=== PATIENT | female | born 1945 | race Caucasian/White ===

== ENCOUNTER 2016-03-24 23:01 | Inpatient (IN) | payer MEDICARE, OTHER ==
[~2016-03-24 23:01] MED LIST: CIPR500T4 PO; METR-1 PO
[2016-03-24 23:39] VITALS: BP 155/65; PULSE 91; RESP 24; TEMP 100.5; O2SAT 93
--- NOTE | 2016-03-24 23:54 | PD ---
HPI Chief Complaint: Cold / Flu Symptoms Time Seen by Provider: 23:09 Travel History International Travel<30 days: No Contact w/Intl Traveler<30days: No Traveled to known affect area: No History of Present Illness HPI The patient is a 70 year old female who presents to the [facility] emergency department with a history of cough and congestion that she reports began a month ago. She reports that the cough is mainly dry in character, however at times it is productive of white sputum. Initially it was productive of yellow to green sputum. The patient reports that today she had a fever with a MAXIMUM TEMPERATURE of 100.5. She reports that she's also been short of breath. She reports that over the last 3 days her symptoms have become much worse. She reports that she has been having frequent episodes of posttussive emesis. She reports that she's had at least 50 episodes of emesis yesterday. She reports that she is not able to sleep related to the cough. She reports that her primary care physician is Dr. Ritter. The patient denies any recent neck pain, chest pain, abdominal pain, diarrhea, urinary symptoms, or neurologic symptoms. [facility] Past Medical History Narrative Medical The patient's past medical history is reportedly none. The patient reports that she quit smoking 16 days ago. Medical History: Denies Significant Hx Diminished Hearing: No Tetanus Vaccination: > 5 Years Influenza Vaccination: No ?: Not Menopausal: No : 3 Para: 3 Miscarriage: 0 : 0 Past Surgical History Narrative Surgical The patient reports that she has a past surgical history significant for bilateral tubal ligation, appendectomy. Surgical History: No Previous Surgery Social History Alcohol Use: Yes (Beer 3 times per week) Tobacco Use: No (Quite 16 days ago smoking 1 pack per day) Substance Use: No Allergies-Medications (Allergen,Severity, Reaction): Coded Allergies: Codeine (Verified Allergy, Mild, Rash, 03/24/16) Reported Meds & Prescriptions Reported Meds & Active Scripts Active No Active Prescriptions or Reported Medications Review of Systems Except as stated in HPI: all other systems reviewed are Neg General / Constitutional: Positive: Fever, Chills Eyes: No: Visual changes HENT: No: Headaches Cardiovascular: Positive: Dyspnea on exertion, No: Chest Pain or Discomfort Respiratory: Positive: Cough, Shortness of Breath, Wheezing Gastrointestinal: Positive: Nausea, Vomiting, No: Diarrhea, Abdominal Pain Genitourinary: No: Dysuria Musculoskeletal: No: Pain Skin: No Rash Neurologic: No: Weakness Psychiatric: No: Depression Endocrine: No: Polydipsia Hematologic/Lymphatic: No: Easy Bruising Physical Exam Narrative General: The patient is a well-developed well-nourished female, uncomfortable appearing on arrival with repeated dry cough. Head and Neck exam: Head is normocephalic atraumatic. Eyes: Pupils are equal round and reactive to light. Nose: Midline septum with pink mucous membranes Mouth: Dentition unremarkable. Moist mucus membranes. Posterior oropharynx is not erythematous. No tonsillar hypertrophy. Uvula midline. Airway patent. Neck: No palpable lymphadenopathy. No nuchal rigidity. No thyromegaly. Cardiovascular: Regular rate and rhythm without murmurs, gallops, or rubs. Lungs: Soft expiratory wheezes audible in bilateral lung [place], no rhonchi, no crackles audible. Abdomen: Soft, without tenderness to palpation in all 4 quadrants of the abdomen. No guarding, rebound, or rigidity. Normal bowel sounds are audible. Extremities: No clubbing, cyanosis, or edema. 2+ pulses in all 4 extremities. No calf tenderness on palpation. Back: No spinous process tenderness to palpation. No costovertebral angle tenderness to palpation. Neurologic Exam: Grossly nonfocal. Skin Exam: No rash noted. Intact skin that is warm and dry. Data Data Last Documented VS Vital Signs Date Time Temp Pulse Resp B/P Pulse Ox O2 Delivery O2 Flow Rate FiO2 03/25/16 03:14 95 Nasal Cannula 2.00 03/25/16 02:39 100.2 117 24 109/51 Orders Lactic Acid Sepsis Protocol (03/24/16 23:42) Electrocardiogram (03/24/16 23:42) Complete Blood Count With Diff (03/24/16 23:42) Comprehensive Metabolic Panel (03/24/16 23:42) Creatine Kinase (Cpk) (03/24/16 23:42) Ckmb (Isoenzyme) Profile (03/24/16 23:42) Troponin I (03/24/16 23:42) B-Type Natriuretic Peptide (03/24/16 23:42) Prothrombin Time / Inr (Pt) (03/24/16 23:42) Act Partial Throm Time (Ptt) (03/24/16 23:42) Blood Culture (03/24/16 23:42) Lipase (03/24/16 23:42) Urinalysis - C+S If Indicated (03/24/16 23:42) Magnesium (Mg) (03/24/16 23:42) Influenzae A/B Antigen (03/24/16 23:42) Chest, Single Ap (03/24/16 23:42) Iv Access Insert/Monitor (03/24/16 23:42) Ecg Monitoring (03/24/16 23:42) Oximetry (03/24/16 23:42) CKMB (03/24/16 23:30) CKMB% (03/24/16 23:30) Sodium Chloride 0.9% Flush (Ns Flush) (03/25/16 01:30) Methylprednisolone So Succ Inj (Solumedr (03/25/16 01:30) Albuterol-Ipratropium Neb (Duoneb Neb) (03/25/16 01:30) Levofloxacin 750 Mg Premix Inj (Levaquin (03/25/16 01:30) Sodium Chlor 0.9% 1000 Ml Inj (Ns 1000 M (03/25/16 02:53) Sodium Chloride 0.9% Flush (Ns Flush) (03/25/16 03:00) Sodium Chloride 0.9% Flush (Ns Flush) (03/25/16 09:00) Acetaminophen (Tylenol) (03/25/16 03:00) Ondansetron Inj (Zofran Inj) (03/25/16 03:00) Albuterol-Ipratropium Neb (Duoneb Neb) (03/25/16 04:00) Albuterol-Ipratropium Neb (Duoneb Neb) (03/25/16 03:00) Methylprednisolone So Succ Inj (Solumedr (03/25/16 08:00) Admit To Inpatient (03/25/16 ) Vital Signs (Adult) Q4H (03/25/16 02:53) Activity Oob With Assistance PRN (03/25/16 02:53) ^ Notify Parameters (03/25/16 02:53) Intake + Output Q8H (03/25/16 02:53) ^ Smoking Cessation Counseling (03/25/16 02:53) Diet Heart Healthy (03/25/16 Breakfast) Resp Oxygen Rikki C Titrat 1-4 L (03/25/16 ) Resp Incentive Spirometry (03/25/16 ) Enoxaparin Inj (Lovenox Inj) (03/25/16 06:00) Inpatient Certification (03/25/16 ) Temazepam (Restoril) (03/25/16 03:15) Levofloxacin 750 Mg Premix Inj (Levaquin (03/26/16 02:00) Sputum Culture And Gram Stain (03/25/16 03:15) Admit Order (Ed Use Only) (03/25/16 03:47) Labs Laboratory Tests Test 03/24/16 03/24/16 23:30 23:45 White Blood Count 9.1 TH/MM3 Red Blood Count 4.45 MIL/MM3 Hemoglobin 13.5 GM/DL Hematocrit 39.7 % Mean Corpuscular Volume 89.3 FL Mean Corpuscular Hemoglobin 30.5 PG Mean Corpuscular Hemoglobin 34.1 % Concent Red Cell Distribution Width 14.5 % Platelet Count 181 TH/MM3 Mean Platelet Volume 8.1 FL Neutrophils (%) (Auto) 77.7 % Lymphocytes (%) (Auto) 12.4 % Monocytes (%) (Auto) 9.6 % Eosinophils (%) (Auto) 0.1 % Basophils (%) (Auto) 0.2 % Neutrophils # (Auto) 7.1 TH/MM3 Lymphocytes # (Auto) 1.1 TH/MM3 Monocytes # (Auto) 0.9 TH/MM3 Eosinophils # (Auto) 0.0 TH/MM3 Basophils # (Auto) 0.0 TH/MM3 CBC Comment DIFF FINAL Differential Comment Prothrombin Time 9.7 SEC Prothromb Time International 0.9 RATIO Ratio Activated Partial 25.5 SEC Thromboplast Time Sodium Level 137 MEQ/L Potassium Level 3.5 MEQ/L Chloride Level 100 MEQ/L Carbon Dioxide Level 26.3 MEQ/L Anion Gap 11 MEQ/L Blood Urea Nitrogen 15 MG/DL Creatinine 0.85 MG/DL Estimat Glomerular Filtration 67 ML/MIN Rate Random Glucose 100 MG/DL Calcium Level 8.7 MG/DL Magnesium Level 1.8 MG/DL Total Bilirubin 0.4 MG/DL Aspartate Amino Transf 22 U/L (AST/SGOT) Alanine Aminotransferase 31 U/L (ALT/SGPT) Alkaline Phosphatase 98 U/L Total Creatine Kinase 172 U/L Creatine Kinase MB 1.0 NG/ML Troponin I LESS THAN 0.02 NG/ML B-Type Natriuretic Peptide 18 PG/ML Total Protein 7.1 GM/DL Albumin 3.6 GM/DL Lipase 135 U/L Lactic Acid Level 1.3 mmol/L MDM Medical Decision Making Medical Screen Exam Complete: Yes Emergency Medical Condition: Yes Medical Record Reviewed: Yes Interpretation(s) Last Impressions Chest X-Ray 03/24/16 2032 Signed Impressions: Service Date/Time: Thursday, March 24, 2016 23:53 - CONCLUSION: Minimal left base parenchymal opacity.. Segun Arroyo MD Differential Diagnosis Pneumonia, versus bronchitis, versus COPD, versus reactive airway disease, versus congestive heart failure, versus acute coronary syndrome Narrative Course During the course of the patients emergency department visit, the patients history, examination, and differential diagnosis were reviewed with the patient. The patient had IV access obtained and blood work sent for analysis. The patient was placed on a taker off drying kiln with oximetry and blood pressure monitoring. An EKG was done on arrival. The patient's EKG shows a sinus tachycardia with occasional supraventricular premature contractions, no acute ST segment elevation is noted. T waves are inverted in V1, V2. No ST segment elevation. The patient was provided DuoNeb 2, Solu-Medrol 125 mg IV, Levaquin 750 mg IV was administered 1. The patients laboratory studies were reviewed and remarkable for a CBC that shows a white count of 9.1, hemoglobin 13.5, platelets 181 with 77.7 neutrophils , CMP is unremarkable, initial set of cardiac enzymes are negative, BNP is 18, lipase 135, PT PTT within normal limits Radiology studies were reviewed and remarkable for a chest x-ray that shows a minimal left days parenchymal opacity consistent with pneumonia. The patient has hypoxia on room air, therefore the patient will be admitted to the hospital for continued evaluation and treatment with supplemental oxygen. The patients results were discussed with the patient, including the plan of care. I explained that further testing and/ or monitoring is indicated based on the patients history, examination, and/ or laboratory findings. Therefore, I recommended admission for additional evaluation. The patient expressed understanding and was agreeable with this plan. The patient was admitted to the hospital in stable condition and sent to a bed under the care of the [facility] hospitalist group. Sepsis Criteria SIRS Criteria (2 or more): Heart rate over 90, RR > 20 or PaCO2 < 32 Sepsis Criteria (SIRS+source): Infect source susp/known Criteria Outcome: Meets SIRS criteria, Meets sepsis criteria Physician Communication Physician Communication The patient's case is discussed with Dr. Segun Guerrero the physician junior administrative assistant who did agree to admit the patient for further evaluation and treatment at this time. Diagnosis Primary Impression: Left lower lobe pneumonia Qualified Code: J18.1 - Pneumonia of left lower lobe due to infectious organism Additional Impression: Hypoxemia Admitting Information Admitting Physician Requests: Admit Scripts No Active Prescriptions or Reported Meds Nathalie Raines MD Mar 24, 2016 23:53
[2016-03-25] VITALS (11 sets, daily range): BP systolic 103–125; BP diastolic 51–67; PULSE 78–117; RESP 17–24; TEMP 98.1–100.5; O2SAT 93–96
[2016-03-25 00:04] LABS: AUTOMATED NEUTROPHIL # 7.1 TH/MM3 (1.8-7.7); BASOPHIL % 0.2 % (0.0-2.0); EOSINOPHIL % 0.1 % (0.0-4.0); HEMATOCRIT 39.7 % (35.0-46.0); HEMO FLAGS DIFF FINAL; LYMPH % 12.4 % (9.0-44.0); LYMPHOCYTE # 1.1 TH/MM3 (1.0-4.8); MEAN CELL VOLUME 89.3 FL (80.0-100.0); MEAN CORPUSCULAR HEMOGLOBIN 30.5 PG (27.0-34.0); MEAN CORPUSCULAR HGB CONC 34.1 % (32.0-36.0); MONO % 9.6 % (0.0-8.0); NEUT % 77.7 % (16.0-70.0); PLATELET COUNT 181 TH/MM3 (150-450); RED BLOOD COUNT 4.45 MIL/MM3 (4.00-5.30); RED CELL DISTRIBUTION WIDTH 14.5 % (11.6-17.2); WHITE BLOOD COUNT 9.1 TH/MM3 (4.0-11.0)
--- NOTE | 2016-03-25 00:05 | RADRPT ---
EXAM DATE/TIME: 03/24/2016 23:53 [place] COMPARISON: No previous studies available for comparison. INDICATIONS : Cough for two months. Vomiting for two days. MEDICAL HISTORY : None. SURGICAL HISTORY : None. ENCOUNTER: Initial ACUITY: 2 months PAIN SCORE: 0/10 LOCATION: Bilateral chest FINDINGS: There is minimal parenchymal opacity at the lateral left lung base. Right lung is grossly clear. Card iomediastinal contours are satisfactory. CONCLUSION: Minimal left base parenchymal opacity.. Segun Arroyo MD on March 25, 2016 at 0:03 Board Certified Radiologist. This report was verified electronically.
[2016-03-25 00:23] LABS: APTT (PATIENT) 25.5 SEC (24.3-30.1); INTERNATIONAL NORMALIZED RATIO 0.9 RATIO; PROTHROMBIN TIME - PATIENT 9.7 SEC (9.8-11.6)
[2016-03-25 00:29] LABS: ALKALINE PHOSPHATASE 98 U/L (45-117); ALT (GPT) 31 U/L (10-53); ANION GAP 11 MEQ/L (5-15); AST (GOT) 22 U/L (15-37); BICARBONATE 26.3 MEQ/L (21.0-32.0); BLOOD UREA NITROGEN 15 MG/DL (7-18); CHLORIDE 100 MEQ/L (98-107); CREATINE KINASE 172 U/L (26-192); GLOMERULAR FILTRATION RATE 67 ML/MIN (>89); MAGNESIUM 1.8 MG/DL (1.5-2.5); POTASSIUM 3.5 MEQ/L (3.5-5.1); SODIUM (NA) 137 MEQ/L (136-145); TOTAL BILIRUBIN ADULT 0.4 MG/DL (0.2-1.0)
[2016-03-25] MEDS ORDERED: LEVOFLOXACIN 750 MG PREMIX INJ 150 ML IV ONE (01:30)
[2016-03-25] MEDS ORDERED: SODIUM CHLORIDE 0.9% FLUSH 5 ML FLUSH IVF PRN (01:30)
[2016-03-25] MEDS ORDERED: methylPREDNISolone SOD SUCC 125 MG/2 ML VIAL IVP ONE (01:30)
[2016-03-25] MEDS: RESP: ALBUTEROL 2.5 MG/IPRATROPIUM 0.5 MG NEB (SCH) INH ×5 (01:52→21:00)
[2016-03-25] MEDS ORDERED: ACETAMINOPHEN 325 MG TAB PO PRN (03:00)
[2016-03-25] MEDS ORDERED: ONDANSETRON HCL 4 MG/2 ML VIAL IV PRN (03:00)
[2016-03-25] MEDS ORDERED: RESP: ALBUTEROL 2.5 MG/IPRATROPIUM 0.5 MG NEB (PRN) INH (03:00)
[2016-03-25] MEDS ORDERED: SODIUM CHLORIDE 0.9% FLUSH 5 ML FLUSH IV FLUSH PRN (03:00)
[2016-03-25] MEDS ORDERED: TEMAZEPAM 15 MG CAP PO PRN (03:15)
[2016-03-25] MEDS: SODIUM CHLOR 0.9% 1000 ML INJ 1,000 ML IV SCH ×3 (05:05→23:44)
[2016-03-25] MEDS: ENOXAPARIN SODIUM 40 MG/0.4 ML SYRINGE SQ SCH (05:11)
[2016-03-25 05:30] LABS: BLOOD, URINE TRACE (NEG); COMMENT (UR) CULT NOT INDICATED; CULTURE IF INDICATED CULT NOT INDICATED; GLUCOSE,URINE NEG (NEG); KETONE, URINE TRACE mg/dL (NEG); MUCUS URINE FEW /lpf (OCC); NITRITE,URINE NEG (NEG); SQUAMOUS EPITHELIAL CELL URINE <1 /hpf (0-5); URINE COLOR YELLOW (YELLW/STRAW)
[2016-03-25] MEDS ORDERED: LORazepam 2 MG/ML VIAL IM ONE (05:30)
[2016-03-25] MEDS: methylPREDNISolone SOD SUCC 40 MG/1 ML VIAL IV SCH ×3 (09:41→20:11)
[2016-03-25] MEDS: SODIUM CHLORIDE 0.9% FLUSH 5 ML FLUSH IV FLUSH SCH ×2 (09:41→20:11)
--- NOTE | 2016-03-25 10:35 | EKG ---
Date Performed: 03/25/2016 Time Performed: 00:44:51 PTAGE: 70 years EKG: SINUS TACHYCARDIA WITH OCCASIONAL SUPRAVENTRICULAR PREMATURE COMPLEXES LOW QRS VOLTAGE IN P RECORDIAL LEADS POSSIBLE RIGHT VENTRICULAR CONDUCTION DELAY ABNORMAL RHYTHM ECG NO PREVIOUS TRACING DOCTOR: Tobias Raines Interpretating Date/Time 03/25/2016 10:33:56
--- NOTE | 2016-03-25 10:57 | MH ---
cc: KIKO ALONZO MD DATE OF ADMISSION: 03/25/2016 CHIEF COMPLAINT Cough and shortness of breath. HISTORY OF PRESENT ILLNESS This is a pleasant 70-year-old female who states she has had a cough for about a month. She has been taking [id number] cough medicine and it did not completely take it away. Over the past 2 days she developed increasing mucous production with green to yellow mucus. She has had some chills. She has had nausea and vomiting anytime she tried to eat. She has felt a little short of breath and weak from this. She is not complaining of any specific chest pain. She does have some discomfort only when she is coughing. She has never been sick like this before. She was going to try to get into her family doctor but was unable to so she came to the emergency room. She was found to have a left base pneumonia and is being admitted for further care. MEDICATIONS Medications on admission are none. ALLERGIES CODEINE. PAST MEDICAL HISTORY No significant medical history. PAST SURGICAL HISTORY 1. Appendectomy. 2. Tubal ligation. SOCIAL HISTORY . Tobacco one pack a day for 13 years, quit 2 weeks ago. Alcohol 4-5 beers three times a week. Recreational drug use occasional pot. She is a retired business ortho rn. FAMILY HISTORY Father at 72 with CAD/UT. He also had diabetes. Mother at 80 of pneumonia. Four sisters alive and well. REVIEW OF SYSTEMS The patient states she has not had a mammogram since age 67. She does not take the flu or pneumonia vaccines. She states she has had a colonoscopy in the last 10 years and is reported to be normal. Prior to getting sick over the last two days her weight has been stable. She denies any other specific changes in her overall health on 10-point review of systems. PHYSICAL EXAMINATION VITAL SIGNS: T-max 100.5, heart rate 117 after nebulizer treatment, prior to nebulizer heart rate 91, blood pressure 109/51. O2 sat is 95% on two liters. GENERAL: In general this is a 70-year-old female resting comfortably in bed in no acute distress. HEENT: Mucous membranes are moist. No jaundice. NECK: Supple. HEART: Tachycardic. LUNGS: A few scattered wheezes. ABDOMEN: Bowel sounds are present. No point tenderness, guarding or rebound. She has no suprapubic tenderness. EXTREMITIES: No edema. Homans negative. Distal pulses palpable. NEUROLOGIC: Awake, alert and oriented x4. She is moving all extremities freely. INVESTIGATIONS CBC is normal. CMP is normal. Lipase is normal. GFR is estimated at 67. Magnesium 1.8. Troponin less than 0.02. INR is 0.9. Chest x-ray shows minimal left base parenchymal opacity. IMPRESSION 1. Left basilar pneumonia. 2. Early sepsis on admission. 3. Recent history of tobacco abuse. DISCUSSION The patient is being admitted to Dr. Alonzo's service. The patient meets inpatient criteria because of meeting SIRS/early sepsis criteria as well as having left basilar pneumonia and requiring oxygen. Without hospitalization she would be at high risk for respiratory failure, septic shock, etc. During her hospital stay she will be gently hydrated, nebulizers will be given, oxygen will be given. Continue IV antibiotics. Will attempt a sputum culture. DVT prophylaxis will be provided. Her diet will be advanced. PRN medications for sleep and nausea will be provided. She will be discharged when she is medically stable. Anticipated length of stay is 3 days. Anticipated discharge is home. Dictated by: Dwight Guerrero PA-C MD GIANCARLO Dai/ROB /3:12 AM /10:42 AM Diagnosis: (1) Left lower lobe pneumonia (2) Hypoxemia Plan: pt seen & Examined d/w Segun d/w PT See H&P\ See Orders will f/u Kiko Alonzo MD Mar 25, 2016 13:31 MTDD
--- NOTE | 2016-03-25 13:31 | HHI.PR ---
Objective Objective Results - Vital Signs Date Time Temp Pulse Resp B/P Pulse Ox O2 Delivery O2 Flow Rate FiO2 03/25/16 12:00 98.1 84 18 109/63 95 03/25/16 10:04 95 Nasal Cannula 2.00 03/25/16 10:00 98.3 88 18 111/60 95 03/25/16 09:49 87 18 123/62 96 Nasal Cannula 2 03/25/16 08:00 98.1 86 18 125/67 95 Nasal Cannula 2 03/25/16 05:14 100.1 87 24 121/65 93 Nasal Cannula 03/25/16 03:14 95 Nasal Cannula 2.00 03/25/16 02:39 100.2 117 24 109/51 95 Nasal Cannula 2 03/25/16 00:05 100.5 24 93 Nasal Cannula 2 03/24/16 23:39 100.5 91 24 155/65 93 Nasal Cannula 2 03/24/16 23:39 91 24 93 Nasal Cannula 2 I/O 03/24/16 03/24/16 03/24/16 03/25/16 03/25/16 03/25/16 07:00 15:00 23:00 07:00 15:00 23:00 Intake Total 150 ml Balance 150 ml Intake Oral 150 ml # Voids 1 Result Diagram: 03/24/16 2330 03/24/16 2330 Other Results Laboratory Tests Test 03/24/16 03/24/16 03/25/16 23:30 23:45 05:15 White Blood Count 9.1 Red Blood Count 4.45 Hemoglobin 13.5 Hematocrit 39.7 Mean Corpuscular Volume 89.3 Mean Corpuscular Hemoglobin 30.5 Mean Corpuscular Hemoglobin 34.1 Concent Red Cell Distribution Width 14.5 Platelet Count 181 Mean Platelet Volume 8.1 Neutrophils (%) (Auto) 77.7 Lymphocytes (%) (Auto) 12.4 Monocytes (%) (Auto) 9.6 Eosinophils (%) (Auto) 0.1 Basophils (%) (Auto) 0.2 Neutrophils # (Auto) 7.1 Lymphocytes # (Auto) 1.1 Monocytes # (Auto) 0.9 Eosinophils # (Auto) 0.0 Basophils # (Auto) 0.0 CBC Comment DIFF FINAL Differential Comment Prothrombin Time 9.7 Prothromb Time International 0.9 Ratio Activated Partial 25.5 Thromboplast Time Sodium Level 137 Potassium Level 3.5 Chloride Level 100 Carbon Dioxide Level 26.3 Anion Gap 11 Blood Urea Nitrogen 15 Creatinine 0.85 Estimat Glomerular Filtration 67 Rate Random Glucose 100 Calcium Level 8.7 Magnesium Level 1.8 Total Bilirubin 0.4 Aspartate Amino Transf 22 (AST/SGOT) Alanine Aminotransferase 31 (ALT/SGPT) Alkaline Phosphatase 98 Total Creatine Kinase 172 Creatine Kinase MB 1.0 Troponin I LESS THAN 0.02 B-Type Natriuretic Peptide 18 Total Protein 7.1 Albumin 3.6 Lipase 135 Lactic Acid Level 1.3 Urine Color YELLOW Urine Turbidity CLEAR Urine pH 5.0 Urine Specific [place] 1.018 Urine Protein NEG Urine Glucose (UA) NEG Urine Ketones TRACE Urine Occult Blood TRACE Urine Nitrite NEG Urine Bilirubin NEG Urine Urobilinogen LESS THAN 2.0 Urine Leukocyte Esterase NEG Urine RBC 1 Urine WBC LESS THAN 1 Urine Squamous Epithelial <1 Cells Urine Mucus FEW Microscopic Urinalysis Comment CULT NOT INDICATED Date/Time Procedure Status Source Growth 03/25/16 00:45 Influenza Types A,B Antigen (LAURA) - Final Complete Nasal Aspirate NEGATIVE FOR FLU A AND B ANTIGEN.... 03/24/16 23:45 Aerobic Blood Culture Received Blood Peripheral Pending 03/24/16 23:45 Anaerobic Blood Culture Received Blood Peripheral Pending A/P Diagnosis: (1) Left lower lobe pneumonia (2) Hypoxemia Plan: pt seen & Examined d/w Segun d/w PT See H&P\ See Orders will f/u Problem Qualifiers (1) Left lower lobe pneumonia: Qualified Code: J18.1 - Pneumonia of left lower lobe due to infectious organism Escobar Alonzo MD Mar 25, 2016 13:31
[2016-03-26] VITALS (9 sets, daily range): BP systolic 88–115; BP diastolic 49–98; PULSE 66–89; RESP 16–18; TEMP 96.9–98.6; O2SAT 91–99
[2016-03-26] MEDS: LEVOFLOXACIN 750 MG PREMIX INJ 150 ML IV SCH (02:31)
[2016-03-26] MEDS: methylPREDNISolone SOD SUCC 40 MG/1 ML VIAL IV SCH ×4 (02:32→20:42)
[2016-03-26] MEDS: RESP: ALBUTEROL 2.5 MG/IPRATROPIUM 0.5 MG NEB (SCH) INH ×4 (02:38→20:53)
[2016-03-26] MEDS: ENOXAPARIN SODIUM 40 MG/0.4 ML SYRINGE SQ SCH (06:16)
[2016-03-26] MEDS: SODIUM CHLORIDE 0.9% FLUSH 5 ML FLUSH IV FLUSH SCH ×2 (08:09→20:48)
[2016-03-26] MEDS: SODIUM CHLOR 0.9% 1000 ML INJ 1,000 ML IV SCH ×2 (08:13→20:52)
[2016-03-26] MEDS ORDERED: PNEUMOCOCCAL POLYVALENT INJ 25 MCG/0.5 ML SYR IM ONE (09:00)
[2016-03-26] MEDS ORDERED: INFLUENZA VIRUS VACCINE (QUADRIVALENT) 0.5 ML SYR IM ONE (09:00)
--- NOTE | 2016-03-26 11:14 | HHI.PR ---
Subjective History of Present Illness PT IS FEELING WELL cough is better breathing is ok ready to go home offers no other c/o Vitals/Results Intake & Output 03/25/16 03/25/16 03/26/16 15:00 23:00 07:00 Intake Total 768 ml 978 ml 700 ml Output Total 300 ml Balance 768 ml 678 ml 700 ml Intake Oral 360 ml 340 ml IV Total 408 ml 638 ml 700 ml Output Urine Total 300 ml # Voids 1 # Bowel Movements 0 Vital Signs Vital Signs Date Time Temp Pulse Resp B/P Pulse Ox O2 Delivery O2 Flow Rate FiO2 03/26/16 09:08 98 Nasal Cannula 2.00 03/26/16 08:28 93 Nasal Cannula 2.00 03/26/16 08:00 96.9 83 16 88/49 93 03/26/16 04:00 97.8 89 18 114/56 99 03/26/16 02:40 98 Nasal Cannula 2.00 03/26/16 02:40 98 High Flow Nasal Cannula 2.00 03/26/16 00:00 97.9 66 18 102/50 94 03/25/16 20:07 Nasal Cannula 2.00 03/25/16 20:00 98.1 78 20 103/55 94 03/25/16 16:00 98.7 79 17 103/59 94 03/25/16 15:12 96 Nasal Cannula 2.00 03/25/16 12:00 98.1 84 18 109/63 95 CBC/BMP: 03/24/16 2330 03/24/16 2330 Microbiology Microbiology 03/25/16 Gram Stain - Final, Resulted 03/25/16 Sputum Culture - Preliminary, Resulted HEAVY GROWTH NORMAL RESPIRATORY KELLY... Physical Exam General General Appearance: No Acute Distress, Comfortable Eyes Eye Exam: Pupils Equal, Extraocular Movement Intact Ears & Nose Ears & Nose Exam: Nasal Mucosa [place] Throat Throat Exam: Oral Mucosa [place] & Moist Pulmonary Resp Exam: Clear Bilaterally Cardiology CV Exam: Regular, Normal Sinus Rhythm Gastrointestinal/Abdomen GI Exam: Soft, Non-Tender, Bowel Sounds Present Integumentary Skin Exam: Warm, Dry Extremeties Extremities Exam: No Edema, Pedal Pulses Palpable Neurologic Neuro Exam: Alert, Awake, Oriented, Speech Clear, Moving All Extremities Assessment/Plan Assessment/Plan IMPRESSION 1. Left basilar pneumonia. 2. COPD exacerbation 3. Recent history of tobacco abuse. PLAN change abx to po taper steroids aerosol tx stop smoking medically stable for d.c d/c home see MRS see Orders f/u pcp Escobar Alonzo MD Mar 26, 2016 11:14
[2016-03-26] MEDS ORDERED: HYDROcodone 5 MG/HOMATROPINE 1.5 MG SYRUP 5 ML CUP PO PRN (11:45)
[2016-03-26] MEDS: ACETAMINOPHEN/HYDROcodone 325 MG/5 MG TAB PO PRN ×2 (13:07→19:07)
[2016-03-27] VITALS: BP 112/61; PULSE 61; RESP 18; TEMP 98.6; O2SAT 97
[2016-03-27] MEDS: LEVOFLOXACIN 750 MG PREMIX INJ 150 ML IV SCH (01:40)
[2016-03-27] MEDS: methylPREDNISolone SOD SUCC 40 MG/1 ML VIAL IV SCH ×2 (01:40→08:33)
[2016-03-27] MEDS: ACETAMINOPHEN/HYDROcodone 325 MG/5 MG TAB PO PRN (03:32)
[2016-03-27] MEDS: RESP: ALBUTEROL 2.5 MG/IPRATROPIUM 0.5 MG NEB (SCH) INH ×2 (04:32→09:09)
[2016-03-27 04:36] VITALS: O2SAT 94
[2016-03-27] MEDS: SODIUM CHLOR 0.9% 1000 ML INJ 1,000 ML IV SCH (05:12)
[2016-03-27] MEDS: ENOXAPARIN SODIUM 40 MG/0.4 ML SYRINGE SQ SCH (06:35)
[2016-03-27] MEDS: SODIUM CHLORIDE 0.9% FLUSH 5 ML FLUSH IV FLUSH SCH (08:33)
[2016-03-27 09:10] VITALS: BP 102/52; PULSE 58; RESP 20; TEMP 96.6; O2SAT 94
[2016-03-27 09:12] VITALS: O2SAT 95
[2016-03-27] MEDS ORDERED: LEVA750T PO (10:56)
--- NOTE | 2016-03-27 11:08 | HHI.DCPOC ---
Discharge Care Plan Diagnosis: (1) Left lower lobe pneumonia (2) Hypoxemia (3) Headache Additional Problems cough Goals to Promote Your Health * To prevent worsening of your condition and complications * To maintain your health at the optimal level Directions to Meet Your Goals Take your medications as prescribed Follow your dietary instruction Follow activity as directed Keep your appointments as scheduled Take your immunizations and boosters as scheduled If your symptoms worsen call your PCP, if no PCP go to Urgent Care Center or Emergency Room Smoking is Dangerous to Your Health. Avoid second hand smoke Call the 24-hour hour crisis hotline for domestic abuse at Cathleen Penny Mar 27, 2016 11:08
--- NOTE | 2016-03-27 11:20 | HHI.DS ---
Discharge Summary Admission Date Mar 25, 2016 at 03:48 Discharge Date: Mar 27, 2016 Admitting Diagnosis 1. Left basilar pneumonia with Hypoxia 2. Early sepsis on admission. 3. Recent history of tobacco abuse. 4. Cough Brief History This is a pleasant 70-year-old female who stated she has had a cough for about a month. She had been taking [id number] cough medicine and it did not completely take it away. After 2 days she developed increasing mucous production with green to yellow mucus. She had some chills. She had nausea and vomiting anytime she tried to eat. She felt a little short of breath and weak during the acute episode. She was not complaining of any specific chest pain, but She did have some discomfort only when she was coughing. She had never been sick like this before. She was unable to contact her family doctor so she came to the emergency room. She was found to have a left base pneumonia and was admitted for further care to Dr. Alonzo's service. The patient met inpatient criteria because of meeting SIRS/early sepsis criteria as well as having left basilar pneumonia and requiring oxygen. Without hospitalization she would be at high risk for respiratory failure, septic shock, etc. CBC/BMP: 03/24/16 2330 03/24/16 2330 Significant Findings Laboratory Tests Test 03/24/16 03/25/16 23:30 05:15 Neutrophils (%) (Auto) 77.7 % (16.0-70.0) Monocytes (%) (Auto) 9.6 % (0.0-8.0) Prothrombin Time 9.7 SEC (9.8-11.6) Estimat Glomerular Filtration 67 ML/MIN (>89) Rate Troponin I LESS THAN 0.02 NG/ML (0.02-0.05) Urine Ketones TRACE mg/dL (NEG) Urine Occult Blood TRACE (NEG) Urine Mucus FEW /lpf (OCC) Imaging Last Impressions Chest X-Ray 03/24/16 2342 Signed Impressions: Service Date/Time: Thursday, March 24, 2016 23:53 - CONCLUSION: Minimal left base parenchymal opacity.. Segun Arroyo MD PE at Discharge GENERAL: In general this is a 70-year-old female resting comfortably in bed in no acute distress. HEENT:atramatic, nomocephalic Mucous membranes are moist. RUTH 2mm. bilaterally No jaundice. NECK: Supple. HEART: regular rhythm, No murmur, rub, or gallop LUNGS: Decreased breath sounds minimal lt. base. Few anterior wheezes noted. ABDOMEN: Bowel sounds are present. No point tenderness, guarding or rebound. She has no tenderness. EXTREMITIES: No edema. Distal pulses palpable. BRYANT's with purpose. NEUROLOGIC: Awake, alert and oriented x4. Transfer Summary none Hospital Course The patient was admitted to Dr. Alonzo's service. The patient met inpatient criteria. During her hospital stay she was gently hydrated, nebulizers were given, oxygen was given. IV antibiotics Levaquin was initiated. DVT prophylaxis was provided. Her diet was Regular and tolerated well. PRN pain medications ordered, laxative given before discharge, sleep and nausea were provided as warrented. On admission, CBC is normal. CMP is normal. Lipase is normal. GFR is estimated at 67. Magnesium 1.8. Troponin less than 0.02. INR is 0.9. Patient responded to medical therapy including hydration, IV antibiotics, and medical management of her pna. Pt Condition on Discharge: Stable Discharge Disposition: Discharge Home Discharge Instructions DIET: Follow Instructions for: As Tolerated, No Restrictions Additional Diet Instructions: follow up with PCP in 1 week. Ambulate and up out of bed with safety precautions. Monitopr for any fever, shortness of breath or dizziness. Activities you can perform: Weight Bearing as Farrukh Other Activity Instructions: safety precautions. New Medications: Levofloxacin (Levaquin) 750 Mg Tab 750 MG PO DAILY pna Days 5 Ref 0 TAB Cathleen Penny Mar 27, 2016 11:20 Activities you can perform: Weight Bearing as Farrukh Other Activity Instructions: safety precautions. New Medications: Levofloxacin (Levaquin) 750 Mg Tab 750 MG PO DAILY pna Days 5 Ref 0 TAB Cathleen Penny Mar 27, 2016 11:20 having left basilar pneumonia and requiring oxygen. Without hospitalization she would be at high risk for respiratory failure, septic shock, etc. During her hospital stay she was gently hydrated, nebulizers were given, oxygen was given. IV antibiotics Levaquin was initiated. DVT prophylaxis was provided. Her diet was Regular and tolerated well. PRN pain medications ordered, laxative given before discharge, sleep and nausea were provided as warrented. The patient was admitted to Dr. Alonzo's service. The patient met inpatient criteria because of meeting SIRS/early sepsis criteria as well as having left basilar pneumonia and requiring oxygen. Without hospitalization she would be at high risk for respiratory failure, septic shock, etc. During her hospital stay she was gently hydrated, nebulizers were given, oxygen was given. IV antibiotics Levaquin was initiated. DVT prophylaxis was provided. Her diet was Regular and tolerated well. PRN pain medications ordered, laxative given before discharge, sleep and nausea were provided as warrented. Pt Condition on Discharge: Stable Discharge Disposition: Discharge Home Discharge Instructions DIET: Follow Instructions for: As Tolerated, No Restrictions Additional Diet Instructions: follow up with PCP in 1 week. Ambulate and up out of bed with safety precautions. Monitopr for any fever, shortness of breath or dizziness. Activities you can perform: Weight Bearing as Farrukh Other Activity Instructions: safety precautions. New Medications: Levofloxacin (Levaquin) 750 Mg Tab 750 MG PO DAILY pna Days 5 Ref 0 TAB Cathleen Penny Mar 27, 2016 11:20 Levofloxacin (Levaquin) 750 Mg Tab 750 MG PO DAILY pna Days 5 Ref 0 TAB Cathleen Penny Mar 27, 2016 11:20
[2016-03-27] MEDS ORDERED: MAGNESIUM HYDROXIDE SUSP 30 ML CUP PO ONE (11:30)
[2016-03-27] MEDS ORDERED: VENTAER INH (12:32)
[2016-03-27] MEDS ORDERED: HYCOS PO (12:32)
[2016-03-27] MEDS ORDERED: PRED20 PO (12:32)
[2016-03-27] MEDS ORDERED: methylPREDNISolone SOD SUCC 40 MG/1 ML VIAL IV PUSH SCH (21:00)
== END 2016-03-27 12:48 | disposition home or self-care (01) | DRG 871 ==
LOC: NEPC 23:01 → NEDA 03-25 03:48 → N07A 03-25 09:58
PROVIDERS: ADMIT Specialist; ATTEND Specialist
DX: A41.9 Sepsis, unspecified organism (principal); J18.9 Pneumonia, unspecified organism; J44.0 Chronic obstructive pulmonary disease with (acute) lower respiratory infection; J44.1 Chronic obstructive pulmonary disease with (acute) exacerbation; I49.49 Other premature depolarization; R09.02 Hypoxemia; F12.90 Cannabis use, unspecified, uncomplicated; Z23 Encounter for immunization; Z87.891 Personal history of nicotine dependence; Z88.5 Allergy status to narcotic agent
CPT/HCPCS: 71010; 80053; 81001; 82550; 82552; 83605; 83690; 83735; 83880; 84484; 85025; 85610; 85730; 86403; 87040; 87070; 87205; 87804; 90471; 90472; 90686; 90732; 93005; 94150; 94640; 94664; 96365; 96375; G0008; G0009; J1650; J1956; J2060; J2405; J2920; J2930; J7030; Q2038

== ENCOUNTER 2017-04-27 19:58 | Emergency (ER) | payer MEDICARE, OTHER ==
[~2017-04-27 19:58] MED LIST changes: -CIPR500T4 PO; +HYCOS PO; +LEVA750T PO; -METR-1 PO; +PRED20 PO; +VENTAER INH
[2017-04-27 20:16] VITALS: BP 132/78; PULSE 84; RESP 16; TEMP 98.3; O2SAT 97
--- NOTE | 2017-04-27 21:36 | RADRPT ---
EXAM DATE/TIME: 04/27/2017 20:34 [facility] COMPARISON: No previous studies available for comparison. INDICATIONS : Intense pain around left patella while walking. No known injury. MEDICAL HISTORY : None. SURGICAL HISTORY : None. ENCOUNTER: Initial ACUITY: 1 day PAIN SCORE: 8/10 LOCATION: Left anterior knee FINDINGS: There is mild arthritic change with medial compartment joint space narrowing and marginal osteophyte formation. No evidence of joint effusion or fracture. Mineralization and alignment are satisfactory. CONCLUSION: Arthritic change. No acute bony findings. Segun Arroyo MD on April 27, 2017 at 21:34 Board Certified Radiologist. This report was verified electronically.
--- NOTE | 2017-04-27 21:57 | PD ---
HPI Chief Complaint: Pain: Acute or Chronic Time Seen by Provider: 21:46 Travel History International Travel<30 days: No Contact w/Intl Traveler<30days: No Traveled to known affect area: No History of Present Illness HPI 72-year-old female complains of left knee pain. Patient states that she has intermittent left knee pain for the past month. Patient states the pain became severe since this morning. Patient denies any injury. Patient stated the pain is sharp severe pain localized anterior aspect of the left knee. Patient denies any pain radiation. Patient states that the pain is worse with weightbearing. Patient denies any fever or chills. Patient denies any history of gout. PFSH Past Medical History Medical History: Denies Significant Hx Cancer: No Cardiovascular Problems: No Diminished Hearing: No Endocrine: No Genitourinary: No Immune Disorder: No Musculoskeletal: No Neurologic: No Psychiatric: No Reproductive: No Respiratory: No Menopausal: No : 3 Para: 3 Miscarriage: 0 : 0 Past Surgical History Abdominal Surgery: Yes (APPENDECTOMY) Gynecologic Surgery: Yes (TUBAL LIGATION) Social History Alcohol Use: Yes (Beer 3 times per week) Tobacco Use: Yes Substance Use: Yes (MARIJUANA) Allergies-Medications (Allergen,Severity, Reaction): Coded Allergies: codeine (Unverified Allergy, Mild, Rash, 10/22/16) Reported Meds & Prescriptions Reported Meds & Active Scripts Active No Active Prescriptions or Reported Medications Review of Systems General / Constitutional: No: Fever Eyes: No: Visual changes HENT: No: Headaches Cardiovascular: No: Chest Pain or Discomfort Respiratory: No: Shortness of Breath Gastrointestinal: No: Abdominal Pain Genitourinary: No: Dysuria Musculoskeletal: Positive: Pain Skin: No Rash Neurologic: No: Weakness Psychiatric: No: Depression Endocrine: No: Polydipsia Hematologic/Lymphatic: No: Easy Bruising Physical Exam Narrative GENERAL: Well-nourished, well-developed patient. SKIN: Focused skin assessment warm/dry. HEAD: Normocephalic. EYES: No scleral icterus. No injection or drainage. NECK: Supple, trachea midline. No JVD or lymphadenopathy. CARDIOVASCULAR: Regular rate and rhythm without murmurs, gallops, or rubs. RESPIRATORY: Breath sounds equal bilaterally. No accessory muscle use. GASTROINTESTINAL: Abdomen soft, non-tender, nondistended. MUSCULOSKELETAL: Patient has moderate diffuse tenderness over the left knee joint with moderate effusion noted. Knee joint stable. Limited range of motion of the left knee secondary to pain. No redness no heat noted. BACK: Nontender without obvious deformity. No CVA tenderness. Neurologic exam normal. Data Data Last Documented VS Vital Signs Date Time Temp Pulse Resp B/P (MAP) Pulse Ox O2 Delivery O2 Flow Rate FiO2 04/27/17 20:16 98.3 84 16 132/78 (96) 97 Orders Orders Knee, Complete (4vws) (04/27/17 ) Ketorolac Inj (Toradol Inj) (04/27/17 22:00) Dexamethasone Inj (Decadron Inj) (04/27/17 22:00) Splint Or Brace Apply/Monitor (04/27/17 21:52) Crutches (04/27/17 21:52) Ed Discharge Order (04/27/17 21:58) MDM Medical Decision Making Medical Screen Exam Complete: Yes Emergency Medical Condition: Yes Interpretation(s) Last Impressions Knee X-Ray 04/27/17 0000 Signed Impressions: Service Date/Time: Thursday, April 27, 2017 20:34 - CONCLUSION: Arthritic change. No acute bony findings. Segun Arroyo MD Differential Diagnosis Differential diagnoses including sprain, ligament injury, arthralgias, gouty arthritis, fracture, dislocation. Narrative Course 72-year-old female with left knee pain. Nontraumatic. Decadron 8 mg IM. Toradol 30 mg IM. Knee immobilizer and crutches given. Diagnosis Primary Impression: Arthralgia of left knee Additional Impression: Effusion, left knee Patient Instructions: General Instructions Additional Instructions: Take medication as needed for pain. Follow-up with an orthopedist. Med/Other Pt SpecificInfo: Prescription(s) given Scripts Tramadol (Ultram) 50 Mg Tab 50 MG PO Q6H Y for PAIN, #20 TAB 0 Refills Prov: Dmitriy Ramirez MD 04/27/17 Prednisone (Prednisone) 20 Mg Tab 20 MG PO BID, #10 TAB 0 Refills Prov: Dmitriy Ramirez MD 04/27/17 Disposition: 01 DISCHARGE HOME Condition: Stable Dmitriy Ramirez MD Apr 27, 2017 21:57
[2017-04-27] MEDS ORDERED: DEXAMETHASONE SOD PHOS 4 MG/ML VIAL IM ONE (22:00)
[2017-04-27] MEDS ORDERED: KETOROLAC TROMETHAMINE 60 MG/2 ML (IM) VIAL IM ONE (22:00)
[2017-04-27] MEDS ORDERED: PRED20 PO (22:02)
[2017-04-27] MEDS ORDERED: TRAM50 PO (22:02)
== END 2017-04-27 22:48 | disposition home or self-care (01) ==
LOC: NEPD 19:58
DX: M25.562 Pain in left knee (principal); M25.462 Effusion, left knee; Z72.0 Tobacco use; Z88.5 Allergy status to narcotic agent
CPT/HCPCS: 73564; 96372; 99283; E0113; J1100; J1885; L1830

== ENCOUNTER → 2017-07-29 | Outpatient (CLI) | payer MEDICARE ==
[~2017-07-29] MED LIST changes: -HYCOS PO; -LEVA750T PO; +TRAM50 PO; -VENTAER INH
--- NOTE | 2017-07-29 10:48 | RADRPT ---
EXAM DATE: 07/29/2017 10:33 AM EDT AGE/SEX: 72 years / Female INDICATIONS: Meniscus tear. Pain left knee. CLINICAL DATA: This is the patient's initial encounter. Patient reports that signs and symptoms have been present for 2 weeks and indicates a pain score of 3/10. MEDICAL/SURGICAL HISTORY: None. Tubal ligation. COMPARISON: No prior [place] exams available for comparison. TECHNIQUE: Multiplanar, multisequence MRI examination was performed without contrast. FINDINGS: Cruciate Ligaments: ACL and PCL are intact. Menisci: The mid body of the medial meniscus is severely reduced in size with only a small portion o f the mid body remaining at the medial most aspect of the knee joint. The more central aspect of the mid body of the medial meniscus is absent. On the sagittal images, there appears to be a small area o f increased signal seen at the inferior articular side at the posterior horn of the medial meniscus. The lateral meniscus is intact. Collateral Ligaments: The medial meniscus is grossly intact. At the anterior inferior aspect there i s a small area of linear fluid signal which may represent some partial minimal tearing. There is flui d seen medial to the medial collateral ligament. The lateral ligamentous structures are intact. Marrow/Cartilage: Bone marrow signal is homogeneous and unremarkable. There is some thinning of the hyaline cartilage at the medial compartment. Other: There is a minimal joint effusion. Extensor mechanism is intact. There is some mild edema see n in the superficial fat anterior to the patellar tendon. There is small focal areas of cystic change seen at the posterior margins of the medial and to lesser degree lateral menisci. CONCLUSION: 1. Absence of much of the central aspect of the mid body of the medial meniscus. There also appears to be an oblique tear at the inferior articular side of the posterior horn of the medial meniscus. 2. Suspected minimal partial intrasubstance tear of the anterior distal aspect of the medial collate ral ligament. There is some fluid seen medial to the medial collateral ligament. 3. Thinning of the hyaline cartilage at the medial compartment. Electronically signed by: Segun Sanchez MD 07/29/2017 10:46 AM EDT
== END ==
LOC: HRAD 09:27
PROVIDERS: ATTEND Orthopaedic Surgery
DX: M25.562 Pain in left knee (principal)
CPT/HCPCS: 73721